=== PATIENT | male | born 2000 | race Caucasian/White ===

== ENCOUNTER 2020-02-24 09:56 | Emergency (ER) | payer BC, SELFPAY ==
[2020-02-24 10:03] VITALS: BP 142/78; PULSE 94; RESP 16; TEMP 37; O2SAT 100
[2020-02-24] MEDS: METOCLOPRAMIDE HCL INJ 10 MG/2 ML VIAL IV PUSH (11:22)
[2020-02-24] MEDS: SODIUM CHLORIDE 0.9% IV 1,000 ML 999 ML IV CONT (11:22)
[2020-02-24] MEDS: KETOROLAC 30 MG/ML VIAL (*BKC) IV PUSH (11:22)
[2020-02-24] MEDS: FAMOTIDINE 20 MG/2 ML VIAL IV PUSH (11:22)
--- NOTE | 2020-02-24 11:34 | ED.GENADULT ---
HPI - General Adult General Chief complaint: Headache <Chuck Bowen PA-C - Last Filed: 02/24/20 13:03> Stated complaint: n/v, headache <Chuck Bowen PA-C - Last Filed: 02/24/20 13:03> Time Seen by Provider: 02/24/20 10:42 <Chuck Bowen PA-C - Last Filed: 02/24/20 13:03> Source: patient <Chuck Bowen PA-C - Last Filed: 02/24/20 13:03> Mode of arrival: ambulatory <Chuck Bowen PA-C - Last Filed: 02/24/20 13:03> Limitations: no limitations <Chuck Bowen PA-C - Last Filed: 02/24/20 13:03> History of Present Illness HPI narrative: Patient is a 19-year-old male who presents to emergency department with frontal headache that began this morning patient notes he had felt fine yesterday denies illness URI or sick contacts patient has had recent change in his antidepressant medications patient noted some nausea and emesis with a headache presents in no distress does not appear uncomfortable patient has not had anything for his symptoms today was unable to keep the ibuprofen down secondary to emesis. <Chuck Bowen PA-C - Last Filed: 02/24/20 13:03> Related Data Home medications: Home Medications Medication Instructions Recorded Confirmed bupropion HCl mg PO 02/24/20 duloxetine mg PO 02/24/20 02/24/20 <Chuck Bowen PA-C - Last Filed: 02/24/20 13:03> Allergies/adverse reactions: Allergies Allergy/AdvReac Type Severity Reaction Status Date / Time No Known Allergies Allergy Verified 02/24/20 10:12 <Chuck Bowen PA-C - Last Filed: 02/24/20 13:03> Review of Systems Review of Systems: All systems reviewed & are unremarkable except as noted in HPI and below <Chuck Bowen PA-C - Last Filed: 02/24/20 13:03> PMFSH Past Medical History Medical History: Medical History (Updated 02/24/20 @ 13:03 by Chuck Bowen PA-C) Depression <JOSE F Pablo Last Filed: 02/24/20 13:03> Surgical History Surgical History: Surgical History Hx of LASIK <Chuck Bowen PA-C - Last Filed: 02/24/20 13:03> Family History Family History: Family History Father Patient's father is in good health <Chuck Bowen PA-C - Last Filed: 02/24/20 13:03> Social History Social History: Social History Smoking status: Never smoker Second hand tobacco smoke exposure: No Alcohol intake: current Substance use: current Substance use type: marijuana <Chuck Bowen PA-C - Last Filed: 02/24/20 13:03> Exam Narrative: Exam Narrative: GENERAL: Well-appearing, well-nourished, and in no acute distress. HEAD: Normocephalic, atraumatic. EYES: PERRLA and EOMI. ENT: Nares clear, no rhinorrhea or epistaxis. Mucous membranes moist. CHEST: Clear to auscultation. No respiratory distress. No wheezes rales or rhonchi HEART: Regular rate and rhythm. No murmur heard. EXTREMITIES: Normal range of motion. No edema. SKIN: Warm, dry, no rash. NEURO: No focal deficits. Alert and oriented x3. Cranial nerves II through XII grossly intact. Normal speech and gait PSYCH: Normal mood and affect. <Chuck Bowen PA-C - Last Filed: 02/24/20 13:03> Course Course Emergency Course: Patient in the room no distress feeling better at this time with medications felt appropriate for discharge home agreeing to follow-up with his prescriber <Chuck Bowen PA-C - Last Filed: 02/24/20 13:03> Vital Signs Vital signs: Vital Signs Temperature 98.6 F 02/24/20 10:03 Pulse Rate 94 02/24/20 10:03 Respiratory Rate 16 02/24/20 10:03 Blood Pressure 142/78 H 02/24/20 10:03 Pulse Oximetry 100 02/24/20 10:03 Temperature 98.6 F 02/24/20 10:03 Pulse Rate 94 02/24/20 10:03 Respiratory Rate 16 02/24/20 10:03 Blood Pressu
== END 2020-02-24 13:09 | disposition home or self-care (01) ==
PROVIDERS: Emergency Provider General Practice; PCP Physician Assistant
DX: R51.9 Headache, unspecified (principal); F32.9 Major depressive disorder, single episode, unspecified
CPT/HCPCS: 96374; 96375; 99284; J1885; J2765; J7030

== ENCOUNTER 2020-07-03 14:03 | Outpatient (CLI) | payer BC, SELFPAY | END 2020-07-03 14:04 | disposition home or self-care (01) | LOC: ANHCOVIDVC 14:03 | PROVIDERS: PCP Physician Assistant | DX: Z23 Encounter for immunization (principal) | CPT/HCPCS: 0001A; 91300 ==

== ENCOUNTER 2020-07-24 14:02 | Outpatient (CLI) | payer BC, SELFPAY | END 2020-07-24 14:03 | disposition home or self-care (01) | LOC: ANHCOVIDVC 14:02 | PROVIDERS: PCP Physician Assistant | DX: Z23 Encounter for immunization (principal) | CPT/HCPCS: 0002A; 91300 ==

== ENCOUNTER 2020-09-23 18:29 | Emergency (ER) | payer OTHER, BC, SELFPAY ==
--- NOTE | ~2020-09-23 | XR_ITS ---
EXAMINATION: XR finger 1st LT min 2V EXAM DATE: 09/23/2020 19:02 INDICATION: Laceration injury , left 1st finger pain. TECHNIQUE: Left 1st finger frontal, lateral and oblique projections obtained and reviewed. There i s no prior study for comparison. FINDINGS: There are no acute left thumb fractures or dislocations identified. There is no subcutaneo us gas. The soft tissue is unremarkable. There are no radiopaque foreign bodies. IMPRESSION: 1. Unremarkable left 1st finger exam. Reviewed, dictated and finalized at location A.
[2020-09-23 18:46] VITALS: BP 115/64; PULSE 78; RESP 16; TEMP 37.2; O2SAT 100
[2020-09-23 20:50] VITALS: BP 109/63; PULSE 72; RESP 18; O2SAT 100
--- NOTE | 2020-09-23 23:27 | ED.WOUNDLAC ---
HPI - Wound/Laceration General Chief Complaint: Wound/Laceration Stated Complaint: Thumb laceration Time Seen by Provider: 09/23/20 22:57 Source: patient Mode of arrival: ambulatory Limitations: no limitations History of Present Illness HPI narrative: Patient is 20 years old white female presents with a laceration left thumb while opening a wine bottle. 4 hours ago. Related Data Allergies Allergy/AdvReac Type Severity Reaction Status Date / Time No Known Allergies Allergy Verified 09/23/20 21:36 Review of Systems Review of Systems: Narrative: CONSTITUTIONAL: Denies fever, chills, or sweats. EYES: Denies visual changes, redness, or discharge. ENT: Denies rhinorrhea, congestion, sore throat, or otalgia. CARDIOVASCULAR: Denies chest pain, palpitations, or edema. RESPIRATORY: Denies cough or dyspnea. GASTROINTESTINAL: Denies abdominal pain, nausea, vomiting, or diarrhea. GENITOURINARY: Denies dysuria or hematuria. SKIN: Denies rash or itching. MUSCULOSKELETAL: Denies back pain, joint pain, or myalgia. NEUROLOGIC: Denies headache, numbness, or weakness. PSYCHIATRIC: Denies anxiety or depression. PMFSH Past Medical History Medical History Depression Surgical History Surgical History Hx of LASIK Family History Family History Father Patient's father is in good health Social History Social History Smoking status: Never smoker Second hand tobacco smoke exposure: No Alcohol intake: current Substance use: current Substance use type: marijuana Gender identity (if verbalized by the patient): Male Exam Narrative: Exam Narrative: General appearance: Well-developed, well-nourished Skin: Normal color left thumb showed 2 cm laceration and the dorsal side. Subcutaneous. No ligament or tendon involvement. Chest and respiratory: Airway patent, no respiratory distress, no accessory muscle use Heart: Regular rate/rhythm Vascular: Normal peripheral pulses, normal capillary refill. Musculoskeletal: Normal range of motion, nontender back Neurologic: Alert and oriented ?3, Course Course Emergency Course: Stable Vital Signs Vital signs: Vital Signs Temperature 37.2 C 09/23/20 18:46 Pulse Rate 78 09/23/20 18:46 Respiratory Rate 16 09/23/20 18:46 Blood Pressure 115/64 09/23/20 18:46 Pulse Oximetry 100 09/23/20 18:46 Temperature 37.2 C 09/23/20 18:46 Pulse Rate 72 09/23/20 20:50 Respiratory Rate 18 09/23/20 20:50 Blood Pressure 109/63 09/23/20 20:50 Pulse Oximetry 100 09/23/20 20:50 Procedures Laceration Laceration 1: Date: 09/23/20 Time: 23:57 Site: other (Left first finger dorsally) Side (If applicable): left Size (cm): 2 Description: linear and clean Depth: simple, single layer Local Anesthetic: lidocaine 1% and with epi Amount of anesthesia used (mL): 2 Pre-repair: wound explored ====== Skin Level ====== Skin layer closed with: other (Ethilon) Size (cm): 6-0 ====== Subcutaneous Layer ====== ====== Muscle Layer ====== ====== Tendon Layer ====== MDM - Wound/Laceration MDM Narrative Medical decision making narrative: Left thumb laceration, x-ray ordered, no ligament or tendon involvement, sutures required. Differential Diagnosis Differential diagnosis: Likely laceration Critical Care Time Critical Care Time Critical Care Time: No Discharge Plan Discharge Clinical Impression:
[2020-09-24 00:17] VITALS: BP 128/82; PULSE 81; RESP 16; O2SAT 98
== END 2020-09-24 00:15 | disposition home or self-care (01) ==
PROVIDERS: Emergency Provider Emergency Medicine; PCP Physician Assistant
DX: S61.012A Laceration without foreign body of left thumb without damage to nail, initial encounter (principal); W27.4XXA Contact with kitchen utensil, initial encounter
CPT/HCPCS: 12001; 73140; 99283

== ENCOUNTER → 2022-08-11 07:44 | Outpatient (CLI) | payer BC, SELFPAY ==
--- NOTE | ~2022-08-11 | US_ITS ---
US abdomen limited INDICATION: Elevated liver function tests PROCEDURE: Realtime right upper abdominal ultrasound. COMPARISON: No prior studies for comparison. FINDINGS: The pancreas is normal without focal mass or pancreatic ductal dilation. Liver echotexture is increased, consistent with fatty infiltration. There is normal directional flow in the portal ve in. The gallbladder is normal without stones, gallbladder wall thickening or pericholecystic fluid. Comm on bile duct measures 3 mm. No sonographic Bang's sign. IMPRESSION: 1: Hepatic steatosis. Reviewed, dictated and finalized at location L. IMPRESSION: 1: Hepatic steatosis.
== END ==
PROVIDERS: PCP Internal Medicine; Visit Provider Internal Medicine
DX: R74.8 Abnormal levels of other serum enzymes (principal); K76.0 Fatty (change of) liver, not elsewhere classified
CPT/HCPCS: 76705